=== PATIENT | female | born 1990 | race Caucasian/White ===

== ENCOUNTER 2018-07-02 11:42 | Emergency (ER) | payer MEDICAID ==
[~2018-07-02] VITALS: Ht 162.6 cm; Wt 101.6 kg
[2018-07-02 11:49] VITALS: Ht 162.6 cm; Wt 101.6 kg
[2018-07-02 14:09] VITALS: BP 145/85
== END 2018-07-02 14:09 | disposition home or self-care (01) ==
LOC: ED 11:42
DX: S63.287A Dislocation of proximal interphalangeal joint of left little finger, initial encounter (principal); W18.39XA Other fall on same level, initial encounter; Y93.89 Activity, other specified; Y92.89 Other specified places as the place of occurrence of the external cause; Y99.8 Other external cause status
CPT/HCPCS: J2001; Q0092